=== PATIENT | male | born 1965 | race African-American/Black ===

== ENCOUNTER 2016-09-07 16:39 | Emergency (ER) | payer OTHER ==
[2016-09-07] MEDS ORDERED: OXYCODONE-ACETAMINOPHEN 5-325 MG TABLET PO ONE (17:19)
[2016-09-07] MEDS ORDERED: DIPH/PERTUSS(ACELL)/TETANUS VAC/PF 0.5 ML SYR (>=10YO) IM ONE ×2 (17:19→21:39)
[2016-09-07] MEDS ORDERED: CEPHALEXIN 500 MG CAPSULE PO ONE (17:19)
--- NOTE | 2016-09-07 17:23 | ER Document Report ---
ED Medical Screen (RME) - General Chief Complaint: Finger Injury Stated Complaint: LEFT INDEX FINGER INJURY Notes: 51-year-old male patient struck his left index fingertip with a hammer about 10 AM this morning. There is crush and laceration to the fingertip. I have greeted and performed a rapid initial assessment of this patient. A comprehensive ED assessment and evaluation of the patient, analysis of test results and completion of the medical decision making process will be conducted by additional ED providers. TRAVEL OUTSIDE OF THE [place] IN LAST 30 DAYS: No - Related Data Allergies/Adverse Reactions: No Known Allergies Allergy (Verified 09/07/16 16:46) Past Medical History Renal/ Medical History: Denies: Hx Peritoneal Dialysis Physical Exam - Vital signs Vitals: Temp Pulse Resp BP Pulse Ox 97.8 F 73 18 166/109 H 94 09/07/16 16:48 09/07/16 16:48 09/07/16 16:48 09/07/16 16:48 09/07/16 16:48 Course - Vital Signs Vital signs: Temp Pulse Resp BP Pulse Ox 97.8 F 73 18 166/109 H 94 09/07/16 16:48 09/07/16 16:48 09/07/16 16:48 09/07/16 16:48 09/07/16 16:48
[2016-09-07] MEDS ORDERED: LIDOCAINE 1% INJ-PF (10 MG/ML) 30 ML SDV INJ ONE (20:12)
--- NOTE | 2016-09-07 20:14 | ER Document Report ---
ED Hand/Wrist Injury - General Chief Complaint: Finger Injury Stated Complaint: LEFT INDEX FINGER INJURY Time seen by provider: 20:10 Notes: Patient is a 51-year-old male that comes emergency department for chief complaint of accidental injury to the left index finger, he states he was hammering a nail at work today when he accidentally missed and hit his finger causing bruising, bleeding, and pain. He denies any other injuries. He states he does not think he is up-to-date on his tetanus within 5 years. He denies any daily medications, allergies, or known past medical history. TRAVEL OUTSIDE OF THE [place] IN LAST 30 DAYS: No - Related Data Allergies/Adverse Reactions: No Known Allergies Allergy (Verified 09/07/16 16:46) Past Medical History - General Information source: Patient - Social History Smoking Status: Former Smoker Drug Abuse: None Lives with: Family Family History: Reviewed & Not Pertinent Patient has suicidal ideation: No Patient has homicidal ideation: No - Medical History Medical History: Negative Renal/ Medical History: Denies: Hx Peritoneal Dialysis Surgical Hx: Negative - Immunizations Immunizations up to date: Yes Hx Diphtheria, Pertussis, Tetanus Vaccination: Yes Review of Systems - Review of Systems Constitutional: No symptoms reported EENT: No symptoms reported Cardiovascular: No symptoms reported Respiratory: No symptoms reported Gastrointestinal: No symptoms reported Genitourinary: No symptoms reported Male Genitourinary: No symptoms reported Musculoskeletal: See HPI Skin: See HPI Hematologic/Lymphatic: No symptoms reported Neurological/Psychological: No symptoms reported Physical Exam - Vital signs Vitals: Temp Pulse Resp BP Pulse Ox 97.8 F 73 18 166/109 H 94 09/07/16 16:48 09/07/16 16:48 09/07/16 16:48 09/07/16 16:48 09/07/16 16:48 Interpretation: Normal - General General appearance: Appears well, Alert In distress: None - HEENT Head: Normocephalic, Atraumatic Eyes: Normal Conjunctiva: Normal Extraocular movements intact: Yes Eyelashes: Normal Pupils: PERRL Mouth/Lips: Normal Mucous membranes: Normal Pharynx: Normal Neck: Normal - Respiratory Respiratory status: No respiratory distress Chest status: Nontender Breath sounds: Normal Chest palpation: Normal - Cardiovascular Rhythm: Regular Heart sounds: Normal auscultation Murmur: No - Abdominal Inspection: Normal Distension: No distension Bowel sounds: Normal Tenderness: Nontender Organomegaly: No organomegaly - Back Back: Normal, Nontender - Extremities General upper extremity: Other - Bruising to the finger tip and distal left index finger, no subungual hematoma noted, no nail injury noted, blood dried along the paronychial area, normal sensation, capillary refill, range of motion of the hand, normal wrist and forearm examination. General lower extremity: Normal inspection, Nontender, Normal color, Normal ROM , Normal temperature, Normal weight bearing. No: Kelly's sign - Neurological Neuro grossly intact: Yes Cognition: Normal Orientation: AAOx4 Ti Coma Scale Eye Opening: Spontaneous Thayer Coma Scale Verbal: Oriented Thayer Coma Scale Motor: Obeys Commands Ti Coma Scale Total: 15 Speech: Normal Motor strength normal: LUE, RUE, LLE, RLE Sensory: Normal - Psychological Associated symptoms: Normal affect, Normal mood - Skin Skin Temperature: Warm Skin Moisture: Dry Skin Color: Normal Course - Re-evaluation Re-evalutation: X-ray imaging showing fracture of the middle part of the third phalanx of the left hand, this was noted by me and reported by the radiologist, however patient is completely nontender over the area, has no injury reported and no signs of injury to that area, only has injury to the left index finger. No fracture of the left index finger. Initially there was a lot of blood and bruising noted, prepared to suture, cleansed thoroughly, found that patient had avulsed tissue over the paronychial area with similar appearance to a very large hanging male. No wound to close. No subungual hematoma. Patient with bruising to the tip of the finger but has normal range of motion and sensation. Wound was cleaned, dressed with Xeroform dressing, discussed wound care, x-ray findings, follow-up and return precautions. Patient states understanding and agreement. - Vital Signs Vital signs: Temp Pulse Resp BP Pulse Ox 98.3 F 59 L 18 159/103 H 99 09/07/16 22:20 09/07/16 22:20 09/07/16 22:20 09/07/16 22:20 09/07/16 22:20 Discharge - Discharge Clinical Impression: Finger injury Qualifiers: Encounter type: initial encounter Laterality: left Qualified Code(s): S69.92XA - Unspecified injury of left wrist, hand and finger(s), initial encounter Condition: Stable Disposition: HOME, SELF-CARE Additional Instructions: X-ray does not show a fracture to the finger you hit today, appears to show a fracture of the middle finger of the left hand, this could be old. Keep the current dressing on for 2 days, avoid getting wet if possible. Afterwards remove the dressing, clean the wound gently with soap and water, apply thin film of antibiotic and a dressing. Take pain medicine provided at night if needed to help sleep, take ibuprofen for pain otherwise if needed. Follow-up with primary care. Return to the emergency department for any concerning or worsening symptoms including redness, swelling, fever, etc. Forms: Return to Work, Elevated Blood Pressure
[2016-09-07] MEDS ORDERED: HYDROCODONE/ACETAMINOPHEN 5-325 MG 6 TAB/DSPK PO PRN (22:21)
[2016-09-08 00:26] VITALS: BP 159/103
== END 2016-09-07 22:26 | disposition home or self-care (01) ==
LOC: ER 16:39
DX: S69.92XA Unspecified injury of left wrist, hand and finger(s), initial encounter (principal); W22.8XXA Striking against or struck by other objects, initial encounter; Y93.89 Activity, other specified; Y99.0 Civilian activity done for income or pay; Z87.891 Personal history of nicotine dependence
CPT/HCPCS: 90471; 90715; 99283